=== PATIENT | male | born 1985 | race Hispanic/Latino ===

== ENCOUNTER 2021-09-10 10:55 | Emergency (ER) | payer BC ==
--- OUTSIDE RECORDS SUMMARY | 2021-09-10 10:59 | XMS REPORT | Continuity of Care Document ---
:1985 Author Organization [facility] t Address [address] [place] [address] Care Team Providers Name Role Phone Andrés Tubbs Primary Care Physician Jacqueline Graves MD Attending Clinician Payers Payer Name Policy Type Policy Number Effective Date Expiration Date S ource Problems Condition Condition Condition Status Onset Resolution Last Treating Co mments Source Name Details Category Date Date Treatment Clinician Date Need for Need for Disease Active Unive rs prophylact prophylact 3-28 it y of ic ic 00:00: [place] immunother immunother 00 Me dical apy apy Branch Encounter Encounter Disease Active Uni vers for for 3-28 [place] Medi leatha use of use of Branch other other medication medication s s S/P S/P Disease Active 2011-07 Univers laparoscop laparoscop 0-09 it y of ic ic 00:00: [place] cholecyste cholecyste 00 Me dical ctomy ctomy Branch Leukopenia Leukopenia Disease Active U [place] 9-04 ity of 00:00: [place] 00 Medical Branch Hyperkalem Hyperkalem Disease Active U [place] ia ia 8-24 ity of 00:00: [place] 00 Medical Branch KIDNEY KIDNEY Disease Active Univers REPLACED REPLACED 8-12 ity of BY BY 00:00: [place] TRANSPLANT TRANSPLANT 00 Me dical UNOS UNOS Branch [id number] Hypertensi Hypertensi Disease Active U nivers on on 12-03 ity of 00:00: [place] 00 Medical Branch 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 ICD10 Diagnosis Term Archives Specialist Utility Allergies, Adverse Reactions, Alerts Allergy Allergy Status Severity Reaction(s) Onset Inactive Treating Comm ents Source Name Type Date Date Clinician Pork Propensi Active Hives 2011-07 Univers Derived ty to 0-15 ity of (Porcine adverse 00:00: [place] ) reaction 00 Medical s to Branch drug Predniso Propensi Active Other - See Severe U nivers ne ty to comments 8-12 knee pain ity o f adverse 00:00: [place] reaction 00 Medical s Branch Seafood/ Propensi Active Hives 2008-07 Univer s Fish ty to 2-30 ity of adverse 00:00: [place] reaction 00 Medical s Branch Social History Social Habit Start Date Stop Date Quantity Comments Source History SDOH University o f Alcohol Frequency [place] M edical Branch History SDVT University o f Alcohol Std [place] Medical Drinks Branch History [facility] University o f Alcohol Binge [place] Medic al Branch Alcohol intake 2019-10-04 2019-10-04 Current University of 00:00:00 00:00:00 non-drinker of [facility] alcohol Branch (finding) Alcohol Comment 2011-05-19 2011-05-19 drank little in Univ ersity of 00:00:00 00:00:00 [facility] drinks glass of Branch wine with family Tobacco use and 2011-05-19 2011-05-19 Never used Universit y of exposure 00:00:00 00:00:00 [facility] Sex Ass[birth year] Universit y of 00:00:00 00:00:00 [facility] Smoking Status Start Date Stop Date Source Never smoker [facility] Medications Ordered Filled Start Stop Current Ordering Indication Dosage Frequency Signature Comments Components Source Medication Medication Date Date Medication? Clinician (SIG) Name Name tacrolimus 0 Yes TAKE 1 Unive rs 1 mg 7-22 CAPSULE BY ity of capsule 00:00: MOUTH [place] 00 TWICE Medical DAILY. z Branch 94.0 mycophenola 2020-0 Yes TAKE 1 Univ ers te sodium 7-22 TABLET BY ity o f 360 mg EC 00:00: MOUTH [place] tablet 00 TWICE Medical DAILY z Branch 94.0 tacrolimus 2020-0 Yes TAKE 1 Unive rs 1 mg 7-22 CAPSULE BY ity of capsule 00:00: MOUTH [place] 00 TWICE Medical DAILY. z Branch 94.0 mycophenola 2020-0 Yes TAKE 1 Univ ers te sodium 7-22 TABLET BY ity o f 360 mg EC 00:00: MOUTH [place] tablet 00 TWICE Medical DAILY z Branch 94.0 Immunizations Ordered Filled Immunization Date Status Comments Sour e Immunization Name Name Influenza Virus 2015-06-03 Completed Universit y of Vaccine Quad ID 00:00:00 [facility] 18-64 YRS [place] Influenza Virus 2015-06-03 Completed Universit y of Vaccine Quad ID 00:00:00 [facility] 18-64 YRS [place] Influenza Virus 2013-07-20 Completed Universit y of Vaccine (3+ yrs) 00:00:00 [facility] Influenza Virus 2013-07-20 Completed Universit y of Vaccine (3+ yrs) 00:00:00 [facility] Influenza Virus 2012-04-14 Completed Universit y of Vaccine 00:00:00 [facility] Influenza Virus 2012-04-14 Completed Universit y of Vaccine 00:00:00 [facility] Hep B, Adol or Pedi 2009-04-04 Completed Unive rsity of Dosage 00:00:00 [facility] Hep B, Adol or Pedi 2009-04-04 Completed Unive rsity of Dosage 00:00:00 [facility] Procedures This patient has no known procedures. Encounters Start End Encounter Admission Attending Care Care Encounter Source Date/Time Date/Time Type Type Clinicians Facility Department ID 2021-09-10 2021-09-10 Telephone [facility] [id number] Univers 00:00:00 00:00:00 Caty Phillips MULTISPEC [id number] ity of IALTY [id number] [facility] [id number] [address] [facility] 2021-09-08 2021-09-08 Telephone [facility] [id number] Univers 00:00:00 00:00:00 Caty Phillips MULTISPEC [id number] ity of IALTY [id number] [facility] [id number] [address] [facility] Results This patient has no known results.
[2021-09-10 11:38] LABS: Absolute Lymphocytes (CBC) 0.9 K/uL (0.7-4.9); Hematocrit 49.5 % (39.6-49.0); Lymphocytes % 20.5 % (15.3-44.8); MPV 6.6 fL (7.6-11.3); RBC Red Blood Cell Count 5.76 M/uL (4.33-5.43)
[2021-09-10] MEDS ORDERED: Ringers Lactate 1,000 ML IV ONE (11:38)
[2021-09-10 11:54] LABS: Bilirubin Direct 0.2 mg/dL (0-0.2); Bilirubin Total 0.8 mg/dL (0.2-1.0); Potassium 3.3 mmol/L (3.5-5.1); Protein, Total 8.1 g/dL (6.4-8.2)
--- NOTE | 2021-09-10 15:28 | EDPHYS ---
Physician Documentation [facility] Name: Dawson Segundo Age: 35 yrs Sex: Male : 1985 Arrival Date: 09/10/2021 Time: 10:57 Bed 20 Private MD: Jacqueline Tubbs C ED Physician Lasha Price HPI: 09/10 11:03 This 35 yrs old Male presents to ER via Ambulatory with complaints of jmm Dehydration. 11:03 The patient presents to the emergency department with nausea, diarrhea. Onset: The jmm symptoms/episode began/occurred gradually, 3 day(s) ago. Possible causes: unknown. The symptoms are aggravated by nothing. The symptoms are alleviated by nothing. Associated signs and symptoms: Pertinent negatives: abdominal pain, fever, vomiting. Is a 35-year-old male with a history of renal transplant that presents emerged department with complaints of multiple episodes of watery diarrhea beginning this past Wednesday. Patient denies vomiting or abdominal pain. Patient denies recent antibiotic use. Denies recent travel.. Historical: - Allergies: 11:19 No Known Allergies; ab2 - PMHx: 11:19 Kidney Transplant; ab2 - PSHx: 11:19 Kidney Transplant; ab2 - Immunization history:: Adult Immunizations up to date, Client reports receiving the 2nd dose of the Covid vaccine. - Social history:: Smoking status: Patient denies any tobacco usage or history of. ROS: 11:03 Constitutional: Negative for fever, chills, and weight loss, Cardiovascular: Negative jmm for chest pain, palpitations, and edema, Respiratory: Negative for shortness of breath, cough, wheezing, and pleuritic chest pain. 11:03 Abdomen/GI: Positive for diarrhea. 11:03 All other systems are negative. Exam: 11:03 Constitutional: This is a well developed, well nourished patient who is awake, alert, jmm and in no acute distress. Head/Face: atraumatic. Eyes: EOMI, no conjunctival erythema appreciated ENT: Moist Mucus Membranes Neck: Trachea midline, Supple Chest/axilla: Normal chest wall appearance and motion. Cardiovascular: Regular rate and rhythm. No edema appreciated Respiratory: Normal respirations, no respiratory distress appreciated 11:03 Back: Normal ROM Skin: General appearance color normal MS/ Extremity: Moves all extremities, no obvious deformities appreciated, no edema noted to the lower extremities Neuro: Awake and alert Psych: Behavior is normal, Mood is normal, Patient is cooperative and pleasant 11:03 Abdomen/GI: Inspection: abdomen appears normal, Bowel sounds: normal, Palpation: soft, nontender, in all quadrants. Vital Signs: 11:17 BP 117 / 77; Pulse 97; Resp 18; Temp 98.4(O); Pulse Ox 99% on R/A; Weight 61.23 kg; ab2 Height 5 ft. 5 in. (165.10 cm); Pain 0/10; 11:59 BP 109 / 81; Pulse 92; Resp 18; Pulse Ox 98% on R/A; ab2 13:09 BP 116 / 86; Pulse 97; Resp 16; Pulse Ox 98% on R/A; ab2 14:09 BP 158 / 87; Pulse 95; Resp 18; Pulse Ox 98% on R/A; ab2 15:39 BP 126 / 79; Pulse 97; Resp 18; Pulse Ox 99% on R/A; ab2 11:17 Body Mass Index 22.46 (61.23 kg, 165.10 cm) ab2 MDM: 11:03 Patient medically screened. tin 15:26 Data reviewed: vital signs, nurses notes. Counseling: I had a detailed discussion with jessica the patient and/or guardian regarding: the historical points, exam findings, and any diagnostic results supporting the discharge/admit diagnosis, lab results, the need for outpatient follow up, to return to the emergency department if symptoms worsen or persist or if there are any questions or concerns that arise at home. ED course: Patient is alert nontoxic in appearance in the ED. No abdominal pain on examination. I do not currently suspect an acute abdominal process. Patient otherwise given strict return precautions. Patient understood and agrees plan of care.. 09/10 11:13 Order name: Basic Metabolic Panel; Complete Time: 12:14 [facility] 09/10 11:13 Order name: CBC with Diff; Complete Time: 11:39 [facility] 09/10 11:13 Order name: Hepatic Function; Complete Time: 12:14 [facility] 09/10 11:13 Order name: Lipase; Complete Time: 12:14 [facility] 09/10 11:13 Order name: IV Saline Lock; Complete Time: 11:38 [facility] 09/10 11:13 Order name: Labs collected and sent; Complete Time: 11:38 [facility] Administered Medications: 11:38 Drug: Lactated Ringers Solution 500 ml Route: IV; Rate: 500 bolus; Site: left ab2 antecubital; 13:09 Follow up: Response: No adverse reaction; IV Status: Completed infusion ab2 Disposition Summary: 09/10/21 15:27 Discharge Ordered Location: Home [facility] Condition: Stable [facility] Diagnosis - Diarrhea, unspecified [facility] Followup: [facility] - With: Jacqueline Tubbs MD - When: 2 - 3 days - Reason: Recheck today's complaints, Continuance of care, Re-evaluation by your physician Discharge Instructions: - Discharge Summary Sheet [facility] - Food Choices to Help Relieve Diarrhea, Adult jm - Probiotics [facility] Forms: - Medication Reconciliation Form [facility] - Thank You Letter [facility] - Antibiotic Education [facility] - Prescription Opioid Use [facility] Prescriptions: - ondansetron 4 mg Oral tablet,disintegrating - take 1 tablet by ORAL route every 4-6 hours; 20 tablet; Refills: 0, Product [facility] Selection Permitted Addendum: 09/14/2021 18:20 Co-signature as Attending Physician, Lasha Price MD I agree with the assessment and c petty plan of care. Signatures: Dispatcher [employer] Lasha Brooks MD MD cha Mickail, Joel, PA PA Steve Reed ab2
--- NOTE | 2021-09-10 15:28 | ER ---
Nurse's Notes [facility] Name: Dawson Segundo Age: 35 yrs Sex: Male : 1985 Arrival Date: 09/10/2021 Time: 10:57 Bed 20 Private MD: Jacqueline Tubbs C Diagnosis: Diarrhea, unspecified Presentation: 09/10 11:17 Chief complaint: Patient states: "I am a kidney transplant patient and I have had N/D ab2 for over 48 hours so my team told me to come get labs and fluids to make sure my kidney is okay.". Coronavirus screen: Vaccine status: Patient reports receiving the 2nd dose of the covid vaccine. Client denies travel out of the [place] in the last 14 days. At this time, the client does not indicate any symptoms associated with coronavirus-19. Ebola Screen: Patient negative for fever greater than or equal to 101.5 degrees Fahrenheit, and additional compatible Ebola Virus Disease symptoms Patient denies exposure to infectious person. Patient denies travel to an Ebola-affected area in the 21 days before illness onset. No symptoms or risks identified at this time. Initial Sepsis Screen: Does the patient meet any 2 criteria? No. Patient's initial sepsis screen is negative. Does the patient have a suspected source of infection? No. Patient's initial sepsis screen is negative. Risk Assessment: Do you want to hurt yourself or someone else? Patient reports no desire to harm self or others. Onset of symptoms is unknown. 11:17 Method Of Arrival: Ambulatory ab2 11:17 Acuity: WILLEM 3 ab2 Historical: - Allergies: 11:19 No Known Allergies; ab2 - PMHx: 11:19 Kidney Transplant; ab2 - PSHx: 11:19 Kidney Transplant; ab2 - Immunization history:: Adult Immunizations up to date, Client reports receiving the 2nd dose of the Covid vaccine. - Social history:: Smoking status: Patient denies any tobacco usage or history of. Screenin:22 Abuse screen: Denies threats or abuse. Denies injuries from another. Nutritional ab2 screening: No deficits noted. Tuberculosis screening: No symptoms or risk factors identified. Fall Risk None identified. Assessment: 11:20 General: Appears in no apparent distress. comfortable, Behavior is calm, cooperative, ab2 appropriate for age. Pain: Denies pain. Neuro: Level of Consciousness is awake, alert, obeys commands, Oriented to person, place, time, situation, Appropriate for age Human Resources Benefits Coordinator are equal bilaterally Moves all extremities. Gait is steady, Speech is normal. Cardiovascular: No deficits noted. Denies chest pain, shortness of breath, Heart tones S1 S2 present Patient's skin is warm and dry. Respiratory: No deficits noted. Airway is patent Respiratory effort is even, unlabored, Respiratory pattern is regular, symmetrical, Breath sounds are clear bilaterally. GI: Abdomen is round non-distended, Bowel sounds present X 4 quads. Reports diarrhea, nausea, Patient currently denies vomiting. : No deficits noted. No signs and/or symptoms were reported regarding the genitourinary system. EENT: No deficits noted. No signs and/or symptoms were reported regarding the EENT system. Derm: No deficits noted. No signs and/or symptoms reported regarding the dermatologic system. Skin is intact, is healthy with good turgor, Skin is pink, warm \\T\\ dry. 13:10 Reassessment: Patient appears in no apparent distress at this time. Fluids infused ab2 completely, pt tolerated well. Denies any needs. at bedside, waiting for disposition. 14:09 Reassessment: Patient appears in no apparent distress at this time. Pt awaiting for ab2 disposition. Vital Signs: 11:17 BP 117 / 77; Pulse 97; Resp 18; Temp 98.4(O); Pulse Ox 99% on R/A; Weight 61.23 kg; ab2 Height 5 ft. 5 in. (165.10 cm); Pain 0/10; 11:59 BP 109 / 81; Pulse 92; Resp 18; Pulse Ox 98% on R/A; ab2 13:09 BP 116 / 86; Pulse 97; Resp 16; Pulse Ox 98% on R/A; ab2 14:09 BP 158 / 87; Pulse 95; Resp 18; Pulse Ox 98% on R/A; ab2 15:39 BP 126 / 79; Pulse 97; Resp 18; Pulse Ox 99% on R/A; ab2 11:17 Body Mass Index 22.46 (61.23 kg, 165.10 cm) ab2 ED Course: 10:57 Patient arrived in ED. as 10:57 Jacqueline Tubbs MD is Private Physician. as 10:58 Tomi Hernadez PA is PHCP. jmm 10:58 Lasha Price MD is Attending Physician. [facility] 11:14 Steve Rodriguez is Primary Nurse. ab2 11:19 Triage completed. ab2 11:22 Arm band placed on right wrist. ab2 11:22 Patient has correct armband on for positive identification. Bed in low position. Call ab2 light in reach. Side rails up X2. Adult w/ patient. 11:22 No provider procedures requiring assistance completed. ab2 11:38 Inserted saline lock: 20 gauge in left antecubital area, using aseptic technique. Blood ab2 collected. 11:38 Basic Metabolic Panel Sent. ab2 11:38 CBC with Diff Sent. ab2 11:38 Hepatic Function Sent. ab2 11:38 Lipase Sent. ab2 15:27 Jacqueline Tubbs MD is Referral Physician. jmm 15:40 IV discontinued, intact, bleeding controlled, No redness/swelling at site. Pressure ab2 dressing applied. Administered Medications: 11:38 Drug: Lactated Ringers Solution 500 ml Route: IV; Rate: 500 bolus; Site: left ab2 antecubital; 13:09 Follow up: Response: No adverse reaction; IV Status: Completed infusion ab2 Outcome: 15:27 Discharge ordered by MD. jmm 15:39 Discharged to home ambulatory, with family. ab2 15:39 Condition: good 15:39 Discharge instructions given to patient, family, Instructed on discharge instructions, follow up and referral plans. medication usage, Demonstrated understanding of instructions, follow-up care, medications, Prescriptions given X 1. 15:40 Patient left the ED. ab2 Signatures: Tomi Hernadez PA PA Shamika Meng as Steve Rodriguez ab2
[2021-09-10 16:21] VITALS: TEMP 98.4
[2021-09-10 16:26] VITALS: BP 126/79; O2SAT 99
== END 2021-09-10 15:40 | disposition home or self-care (01) ==
LOC: ER 10:55
DX: R19.7 Diarrhea, unspecified (principal); Z94.0 Kidney transplant status
CPT/HCPCS: 96361; 85025; 80048; 36415; 80076; 83690; 96360; 99284; J7120